=== PATIENT | female | born 1995 | race Caucasian/White ===

== ENCOUNTER → 2016-11-30 10:07 | Observation (INO) ==
--- NOTE | 2016-11-30 09:58 | OB/GYN Progress Note ---
Date of Encounter: 11/30/16 Time of Encounter: 09:55 - Assessment and Plan (1) 37 weeks gestation of Current Visit: Yes Status: Acute (2) False labor Current Visit: Yes Status: Acute Subjective - Subjective Principal diagnosis: 37 weeks gestation, contractions Interval history: 21yo female at 37w5d presents with c/o contractions. No vaginal bleeding or leakage of fluid. Objective - Vital Signs Vital Signs: Intake and Output 11/29/16 11/30/16 11/30/16 23:59 07:59 15:59 Other: Weight 78.3 kg Patient Weight 11/30/16 23:59 Weight 78.3 kg - Exam FHR: category 1 Auscultation: bilateral: normal Abdomen: Present: gravid Cervical dilation: 3/70/-2 x 2 after 90 min obs
== END | disposition home or self-care (01) ==
LOC: 1NENULAB
PROVIDERS: ADMIT Obstetrics & Gynecology; ATTEND Obstetrics & Gynecology

== ENCOUNTER 2020-12-28 14:12 | Inpatient (IN) ==
[2020-12-28] MEDS ORDERED: *HR* Nalbuphine 10 MG/ML AMPUL IV PRN (14:27)
[2020-12-28] MEDS ORDERED: Famotidine 20 MG/2 ML VIAL IVP PRN (14:27)
[2020-12-28] MEDS ORDERED: Metoclopramide 10 MG/2 ML VIAL IVP PRN (14:27)
[2020-12-28] MEDS ORDERED: Naloxone 0.4 MG/ML INJ IVP PRN (14:27)
[2020-12-28] MEDS ORDERED: Ondansetron 4 MG/2 ML VIAL IVP PRN (14:27)
[2020-12-28] MEDS ORDERED: Azithromycin 500 MG in 0.9 % Sodium Chloride 250 ML IVPB ONE (14:27)
[2020-12-28] MEDS ORDERED: miSOPROStoL 25 MCG TABLET PO PRN (15:47)
[2020-12-28 16:00] LABS: Basophils % 0.2 %; Eosinophils # 0.1 K/mcL (0.0-0.6); Eosinophils % 0.7 %; Hematocrit 33.2 % (35.3-44.9); Hemoglobin 10.8 g/dL (11.5-15.4); Immature Granulocytes % 0.7 % (0-4); Lymphocytes # 1.7 K/mcL (0.6-4.6); Lymphocytes % 16.7 %; Mean Corpuscular HGB Conc 32.5 g/dL (31.6-35.5); Mean Corpuscular Hemoglobin 29.7 pg (28.0-33.3); Mean Corpuscular Volume 91.2 fL (83.0-100.0); Mean Platelet Volume 10.5 fL (9.4-12.4); Monocytes # 0.7 K/mcL (0.0-1.3); Monocytes % 6.7 %; Neutrophils # 7.5 K/mcL (1.6-8.9); Platelet Count 294 K/mcL (140-400); Red Blood Count 3.64 M/mcL (3.82-4.97); White Blood Count 10.1 K/mcL (4.3-11.1)
[2020-12-28 16:04] LABS: Amphetamine Screen,Urine Negative ng/mL (Cutoff=1000); Barbiturate Screen,Urine Negative ng/mL (Cutoff=200); Benzodiazepines Screen,Urine Negative ng/mL (Cutoff=200); Cannabinoid Screen,Urine Negative ng/mL (Cutoff = 50); Cocaine Screen,Urine Negative ng/mL (Cutoff= 300); Opiate Screen,Urine Negative ng/mL (Cutoff=300); Phencyclidine Screen,Urine Negative ng/mL (Cutoff=25)
[2020-12-28] MEDS: Ringers Solution, Lactated 1,000 ML IVC SCH ×2 (17:28→19:33)
[2020-12-28] MEDS ORDERED: Ropivacaine/PF 0.2% 20 ML VIAL ONE (18:47)
[2020-12-28] MEDS ORDERED: *HR* FentaNYL (PF) 100 MCG/2 ML VIAL ONE (18:47)
[2020-12-28] MEDS ORDERED: Epidural Premix (fent/bupiv) 110 ML EP ONE (18:49)
[2020-12-28] MEDS ORDERED: EPHEDrine 50 MG/ML VIAL IVP PRN (19:10)
[2020-12-28] MEDS ORDERED: Epidural Premix (fent/bupiv) 110 ML EP SCH (19:15)
[2020-12-28] MEDS ORDERED: Oxytocin 20 units/ LR 1000 mL 20 UNIT/1,000 ML BAG IVC ONE (22:11)
[2020-12-28] MEDS ORDERED: Oxytocin 20 units/ LR 1000 mL 20 UNIT/1,000 ML BAG IVC SCH (22:15)
[2020-12-29] MEDS ORDERED: Acetaminophen 325 MG TABLET PO PRN (10:00)
[2020-12-29] MEDS ORDERED: Measles/Mumps/Rubella Vacc 0.5 ML VIAL SQ PRN (10:00)
[2020-12-29] MEDS ORDERED: Oxytocin 20 units/ LR 1000 mL 20 UNIT/1,000 ML BAG IVC SCH (10:00)
[2020-12-29] MEDS: Prenatal Vit/FA 1 EACH TABLET PO SCH (10:44)
[2020-12-29] MEDS: Ibuprofen 600 MG TABLET PO PRN ×2 (10:44→22:04)
[2020-12-29] MEDS: Ringers Solution, Lactated 1,000 ML IVC SCH (10:45)
[2020-12-30 07:59] VITALS: BP 98/60
[2020-12-30] MEDS: Ibuprofen 600 MG TABLET PO PRN (08:30)
[2020-12-30] MEDS: Prenatal Vit/FA 1 EACH TABLET PO SCH (08:30)
== END 2020-12-30 13:30 | disposition home or self-care (01) | DRG 560 ==
LOC: 1NENULAB 14:12 → 1NENUOBS 12-29 10:00
PROVIDERS: ADMIT Obstetrics & Gynecology; ATTEND Obstetrics & Gynecology